=== PATIENT | female | born 1945 | race Caucasian/White ===

== ENCOUNTER → 2016-08-07 | Outpatient (CLI) | payer OTHER, MEDICARE | LOC: MMPC 11:11 | PROVIDERS: ATTEND Surgery | DX: M94.0 Chondrocostal junction syndrome [Tietze] (principal) | CPT/HCPCS: 99201; G0463 ==

== ENCOUNTER → 2016-08-16 | Outpatient (CLI) | payer OTHER, MEDICARE ==
--- NOTE | 2016-08-16 14:12 | DI ---
PA /LATERAL CHEST X-RAY, 08/16/2016 9:50 AM : Clinical History: Costochondritis. Previous Exam: 07/23/2015. There is no acute soft tissue or bony abnormality. There is marked midthoracic dextroscoliosis. Heart size is normal. Lungs are clear. Mediastinal structures are normal. There are no pulmonary nodules. Reading: Normal chest x-ray. There is midthoracic dextroscoliosis.
--- NOTE | 2016-08-16 14:14 | DI ---
LEFT RIB SERIES, 08/16/2016 9:50 AM: Clinical History: Costochondritis in the lower left ribs. Previous Exam: None at this facility. Two views are submitted. The telemetry BBs are placed anteriorly in proximity to the eighth and ninth ribs. There are no rib fractures noted. The visualized portions of the lung are normal. There is mar ked dextroscoliosis of the mid lumbar spine. Readin. No acute fractures are visualized. 2. No abnormality is seen in the region of the anterior aspect of the seventh through eighth ribs.
== END ==
LOC: RAD 09:46
PROVIDERS: ATTEND Surgery
DX: M94.0 Chondrocostal junction syndrome [Tietze] (principal)
CPT/HCPCS: 71020; 71100

== ENCOUNTER 2016-11-14 09:20 | Day surgery (SDC) | payer OTHER, MEDICARE ==
[~2016-11-14 09:20] MED LIST: BUPivacaine Inj 0.25% PF - 10ml vial EPIDURAL ONE; DEXAMETHASONE PF 10 MG/1 ML VIAL IM ONE; TRIAMCINOLONE ACETONIDE 40 MG/1 ML IAC ONE
[2016-11-14 10:10] VITALS: RESP 16
--- NOTE | 2016-11-14 11:04 | GEN.OPNOTE ---
Interlaminar KALYANI Procedure: Interlaminar Epidural Steriod Injection Procedure Code - Neurosurgery: 86196 : Cervical Epidural Injection (Single) Level: Cervical Preoperative Diagnosis: Cervical Degenerative Disc Disease Postoperative Diagnosis: same -: Consent: Rationale for procedure, nature of procedure, possible risks and benefits were discussed with the patient. Risks including allergic reaction to medications, known effects of steroid medications including transient elevation in blood sugar with aggravation of pre-existing diabetes and remote risk of aseptic necrosis of the hip. Pain at the injection site, inadvertent dural puncture with resultant in CSF leak and headache possibly requiring further treatment. Infection or bleeding with potential risk of neurologic injury with weakness, paralysis or were all reviewed with the patient who wished to proceed. Anesthesia, sedation: No intravenous access or sedation was used. Physiologic monitoring of pulse and oxygen saturation was utilized. Procedure: The patient was placed prone on the operating room table, prepped with Chloroprep and sterilely draped. The skin was anesthetized with 1% Buffered Xylocaine. Under fluoroscopic control a 22-gauge Touhy needle was advanced into the epidural space at the C7T1 level. Using loss-of- resistance technique the epidural space was identified. Omnipaque was injected under real- time fluoroscopy demonstrating an epidurogram. Following this 5 ml of a mixture of kenalog(40mg/ml) , dexamethasone 10 mg and 1% lidocaine was injected epidurally. AP and lateral images of the final needle placement were obtained. The needle was removed and the patient returned to the post procedure recovery room where they were monitored for any side effects. Pain assessment: Preprocedure pain []/10, post procedure pain []/10. Discharge instructions: Patient was given a pain log to be filled out and returned. A delayed response to the steroids of 2-5 days was discussed.
--- NOTE | 2016-11-14 11:24 | PDOC(PROG) ---
General Note Progress Note: Patiient with costochondritis on the left. 25 gauge needle placed under left T11 , T12 rib and 5cc .25% bupivicaine alonfg with 40 mg triamcinolone, 10 mg dexamethasone injected
[2016-11-14 11:27] VITALS: TEMP 97.8
== END 2016-11-14 11:24 | disposition home or self-care (01) ==
LOC: SDSC 09:20
PROVIDERS: ATTEND Pain Medicine Interventional Pain Medicine
DX: M50.33 Other cervical disc degeneration, cervicothoracic region (principal)
CPT/HCPCS: 62321; J1100; J3301; S0020